=== PATIENT | female | born 1955 | race Caucasian/White ===

== ENCOUNTER 2018-11-11 14:12 | Inpatient (IN) | payer MEDICARE, BC, SELFPAY ==
[2018-11-11 14:15] VITALS: BP 141/55; PULSE 64; RESP 18; TEMP 36.1; O2SAT 98; BMI 32.3
--- NOTE | 2018-11-11 14:30 | EKG12_ITS ---
Test Reason : GENERAL ILLNESS Blood Pressure : / mmHG Vent. Rate : 058 BPM Atrial Rate : 058 BPM P-R Int : 186 ms QRS Dur : 114 ms QT Int : 482 ms P-R-T Axes : -11 -33 020 degrees QTc Int : 473 ms Sinus bradycardia Left axis deviation Incomplete left bundle branch block Abnormal ECG Confirmed by ISAIAS MILLAN, JOSE ([id number]), editor managing newspaper ANNIE SHAHID ([id number]) on 11/12/2018 1:11:50 PM Referred By: JOSE Confirmed By:JOSE ESPARZA MD
--- NOTE | 2018-11-11 14:32 | ED.VISSUMM ---
- ER Visit Summary Date of Service: 11/11/18 Chief Complaint: Weakness History of Present Illness: The patient is a 63 F with history of diabetes and chronic renal failure. Patient states she had 2 sessions of dialysis in August. She is currently visiting from [place] and plans to be here for a few more weeks. When she goes back to [place] she is supposed to follow-up with her cardiac nurse practitioner to arrange nighttime dialysis on a regular basis. Patient states she feels generally weak and is concerned she may need dialysis now. She does report having diarrhea since last evening. She has not noted fever. Physical Examination: Vital signs are unremarkable. Patient sitting upright in bed no acute distress. Heart is regular rate and rhythm. Lung sounds are clear. Abdomen is soft and nontender. Test Results: EKG is sinus bradycardia 58 bpm with no sign of acute ischemia. CBC reveals anemia with a hemoglobin of 7.7. Chemistry studies reveal a sodium of 130 and a bicarb of 15. Her glucose is 115. Her BUN is 88 and creatinine is 6.14. LFTs normal. Emergency Department Course and Treatment: I attempted to check [facility] to see if I could find prior records but there are no records available for comparison. Patient was started on normal saline at 150/h after reviewing her labs. I spoke with Dr. Espinoza from nephrology. She recommended hospitalization overnight for hydration. She said she would consider iron and Epogen before giving a blood transfusion. If her renal function is not improved she may need to undergo dialysis. Treatment Plan: [] Disposition: Admit Impression: 1. Chronic renal failure 2. Hyponatremia 3. Anemia This note was generated with [employer] dictation software. It may contain incorrect words, spelling, and punctuation that were not noted in review of the chart prior to signing ED Disposition - Plan for ED Patient: Referrals: [facility] Doctor,Out of [Primary Care Provider] -
[2018-11-11 14:47] LABS: Absolute Neutrophil Count 5.2 X10^3/uL (2.0-7.7); Basophil# 0.01 X10^3/uL; Basophil% 0.2 % (0-1); Differential Indicated SCAN CRITERIA MET; Eosinophil# 0.02 X10^3/uL; Eosinophils% 0.3 % (0-5); Hematocrit 24.2 % (37-47); Hemoglobin 7.7 g/dl (12.0-15.0); Lymphocyte % 6.9 % (19-41); Mean Corp Hgb Conc 31.8 g/gl (32-36); Mean Corpuscular Hgb 30.2 pg (27.0-32.0); Mean Corpuscular Volume 94.9 fL (81-99); Mean Platelet Vol. 8.1 fl (6.2-12.0); Monocyte# 0.18 X10^3/uL; Monocyte% 3.1 % (0-10); Neutrophil % 89.2 % (47-70); POSITIVE COUNT NO; POSITIVE DIFFERENTIAL YES; POSITIVE MORPHOLOGY NO; Platelet Count 214 K/mm3 (150-450); RBC Distribution Width CV 15.5 % (11.6-14.6); Red Blood Count 2.55 M/mm3 (4.2-5.4); White Blood Count 5.8 K/mm3 (4.4-11.0)
[2018-11-11 15:01] LABS: AST(SGOT) 13 U/L (15-37); Alanine Aminotransfer ALT/SGPT 12 U/L (13-56); Albumin, Serum 3.1 g/dL (3.2-5.0); Alkaline Phosphatase 81 U/L (45-117); Anion Gap 13 (5-15); BUN 88 mg/dL (7-18); BUN/Creat Ratio 14.3 RATIO (10-20); Bilirubin, Direct 0.15 mg/dL (0.00-0.30); Calcium,Total 7.6 mg/dL (8.5-10.1); Chloride 102 mmol/L (98-107); Creatinine, Serum 6.14 mg/dL (0.55-1.02); EST Glomerular Filtration Rate 7 mL/min (>60); Est Glom Filt Rate - Afr Amer 9 mL/min (>60); Estimated Creatinine Clearance 8.55 ml/min; Globulin 4.3 g/dL (2.2-4.2); Glucose 115 mg/dL (74-106); Potassium 5.1 mmol/L (3.5-5.1); Protein, Total 7.4 g/dL (6.4-8.2); Sodium Level 130 mmol/L (136-145)
[2018-11-11 15:37] LABS: Differential Comment SCANNED
[2018-11-11] MEDS: 0.9% Normal Saline 1,000 ML 150 ML IV (15:45)
[2018-11-11 16:09] VITALS: BP 130/56; PULSE 61; RESP 14; O2SAT 95
--- NOTE | 2018-11-11 16:33 | PCM.HP.STD ---
Problem List (1) Debility Status: Acute History of Present Illness Date of Admission: 11/11/18 Chief Complaint: weakness The patient is a 63 year old F who is here visiting from [facility] for the past couple weeks and yesterday started feeling weak and having diffuse paresthesias. This morning had a diarrhea, which she gets intermittently but not any worse than usual. Just felt weak and came to the emergency room. In the emergency room, patient was noted to have a hemoglobin of 7.7 and a creatinine of 6.14. Potassium was 5.1. No baseline lab to available to be compared with. Patient has known that she has bad kidneys but does not know what her normal creatinine is though she was admitted a couple weeks ago in [place] and stated that her creatinine may have been around 6 at that time. Patient sees a blueprinting and photocopy supervisor in [place] that they are looking to plan on getting her set up with nocturnal dialysis which after further elaboration was peritoneal dialysis but patient does not have access port yet. Patient states that she was on Coumadin but stopped it voluntarily couple weeks ago prior to her trip. Patient thinks that she is on it for blood clot in her heart and was on the occasion for about 2 and half months 3 months she was supposed to be on that. She states that they found a blood clot in her heart. She does not know if it was an LV thrombus or not. [] Past Medical History Medical History: Medical History (Last Updated 11/11/18 @ 16:36 by Anthony Georges DO) CKD stage 5 due to type 2 diabetes mellitus E11.22, N18.5 DM2 (diabetes mellitus, type 2) E11.9 SLE (systemic lupus erythematosus) M32.9 HTN (hypertension) I10 Allergies sertraline [From Zoloft] Allergy (Verified 11/11/18 14:14) Other MAKES ME CLIMB THE PEACOCK bacitracin [From Neosporin ([id number])] Adverse Reaction (Verified 11/11/18 14:14) Other PT STATES, SHE GETS DRY SKIN. neomycin [From Neosporin ([id number])] Adverse Reaction (Verified 11/11/18 14:14) Other PT STATES, SHE GETS DRY SKIN. polymyxin B [From Neosporin ([id number])] Adverse Reaction (Verified 11/11/18 14:14) Other PT STATES, SHE GETS DRY SKIN. Psychiatric History: No pertinent psych hx Smoking Status: Heavy Smoker (>10/day) Tobacco Use: Cigarettes Alcohol: None Drugs: None - *Family History Maternal Family History: Family History (Last Updated 11/11/18 @ 16:36 by Anthony Georges DO) Other Rheumatoid arthritis Review of Systems Constitutional: Reports: Anorexia, Chills, Malaise, Weakness. Denies: Fever Eyes: Denies: Blurred vision, Double vision HEENT: Denies: Head Aches, Sinus Congestion, Sinus Drainage Cardiovascular: Denies: Chest Pain, Palpitations Respiratory: Denies: Cough, Shortness of breath at rest, Sputum production Gastrointestinal: Reports: Diarrhea, Nausea. Denies: Vomiting Genitourinary: Denies: Dysuria Musculoskeletal: Denies: Joint Pain, Joint Tenderness Skin: Reports: Wounds - Healing wound on her right upper extremity from infiltrated IV.. Denies: Rash Neurological: Reports: Balance problems. Denies: Blurred vision, Double vision, Change in Speech Psychiatric: Denies: Anxiety, Depression Endocrine: Denies: Change in Body Habitus, Heat/ Cold Intolerance Hematologic/ Lymphatic: Reports: Hx of blood clot. Denies: Easy Bruising, Easy Bleeding Comment: A 10 point review of systems were negative except as mentioned in the history of present illness and the other review of systems. VTE Information - Inpt Only VTE Present on Admission: No VTE Mechan Device Prophylaxis: None VTE Pharm Prophylaxis ordered?: No Reason prophylaxis not ordered:: Procedure Not Indicated Patient Problems: Active and Suspected Problems Debility (Acute) - Physical Exam General: Alert, Cooperative, No apparent distress HEENT: Atraumatic, Normocephalic, - - No scleral icterus Oral: Moist Mucosa, No Gingival or Mucosal Lesions/ Ulcerations Neck: No Nodes, Thyroid Normal Size and Texture Lungs: Clear to auscultation, Normal air movement, No rhonchi, No wheeze, No rales Cardiovascular: Regular rate, Regular Rhythm, Normal S1, Normal S2, No murmurs Abdomen: Bowel Sounds Present, Soft, Non Tender, Non-Distended, No Hepato-splenomegaly, Obese Extremities: No edema, No Calf Tenderness Skin: No rashes, - - Healing wound on her right forearm. Musculoskeletal: No Tenderness to Palpation of Joints or Extremities, No Muscle Wasting Neurological: Muscle tone normal, Coordination normal, - - No clonus Psych/Mental Status: Appropriate, Flat Affect Vital Signs Temp Pulse Resp BP Pulse Ox 36.1 C L 61 14 130/56 H 95 11/11/18 14:15 11/11/18 16:09 11/11/18 16:09 11/11/18 16:09 11/11/18 16:09 Oxygen Delivery Method Room Air Weight: 90.718 kg Body Mass Index (BMI) 32.3 Laboratory Tests Past 24 Hrs 11/11/18 11/11/18 14:40 14:40 WBC 5.8 RBC 2.55 L Hgb 7.7 L Hct 24.2 L MCV 94.9 MCH 30.2 MCHC 31.8 L RDW 15.5 H RDW Differential 54.0 H Plt Count 214 MPV 8.1 Immature Gran % (Auto) 0.300 Neut % (Auto) 89.2 H Lymph % (Auto) 6.9 L [place] % (Auto) 3.1 Eos % (Auto) 0.3 Baso % (Auto) 0.2 Absolute Neuts (auto) 5.2 Absolute Lymphs (auto) 0.40 L Total Counted Not Reportable Differential Comment SCANNED Sodium 130 L Potassium 5.1 Chloride 102 Carbon Dioxide 15.0 L Anion Gap 13 BUN 88 H Creatinine 6.14 H Estim Creat Clear Calc 8.55 Est GFR (MDRD) Af Amer 9 L Est GFR (MDRD) Non-Af 7 L BUN/Creatinine Ratio 14.3 Glucose 115 H Calcium 7.6 L Total Bilirubin 0.40 Direct Bilirubin 0.15 AST 13 L ALT 12 L Alkaline Phosphatase 81 Total Protein 7.4 Albumin 3.1 L Globulin 4.3 H Assessment/Plan All Active Problems Debility (Acute) 1. Debility May be related with just some dehydration on top of her other medical comorbidities We will give her IV fluids. Patient states that she is Andrew feeling better after some IV fluids. Patient stated that she is unsteady so we will have physical and occupational therapy evaluate her 2. Chronic kidney disease stage V I suspect that the patient is either at her baseline or not far off from it Unfortunately do not have any records and the patient does not know what her baseline creatinine is though she suspected around [address] Espinoza, who was contacted by the emergency room for further input Patient sees a Dr. Carl Nunn's in [facility] and they were planning on starting peritoneal dialysis whenever she got back from her prolonged trip. Patient states that he told her that she should not have dialysis through her neck presumably through a dialysis catheter because that would impede her getting peritoneal dialysis. Likely the patient do not know how that is would affect that but we will have our blueprinting and photocopy supervisor evaluate her and provide input. Will request records from [facility] in [place], [place] and from Dr. Carl Nunn. 3. Anemia I suspect anemia of chronic disease Monitor May need Epogen but will defer to nephrology 4. Diabetes mellitus type 2 Weight on her home medications Sliding scale insulin Check an A1c 5. Possible left ventricular thrombosis Patient states that they found a clot in her heart with an echocardiogram couple months ago and that she has been on Coumadin but stopped it before making her trip out to [place] We will start her on heparin drip and Coumadin Check records from the hospital in [place] may need to consider doing an echocardiogram here to verify if she does still indeed have an LV thrombus But if patient was only to be on blood thinners for 3 months of suspected actually may be more of a DVT that she had but patient denies that. Unfortunately, this patient's history is not clearly reliable If patient does indeed have an LV thrombus patient will need to be anticoagulated until her INR is greater than equal to 2. Patient states that she would not stay in the hospital that long. I told the patient that she is certainly declined any medication that she would want and leave potentially AGAINST MEDICAL ADVICE but I did advise her that she may want to confirm with her insurance company to make sure that she would not be financially responsible for the cost of this hospitalization if she were to choose to leave AGAINST MEDICAL ADVICE 6. VTE prophylaxis: Not indicated as patient is currently being anticoagulated. Given the debility patient is being brought under observation status at this point time the patient is found to have a LV thrombus and then her hospitalization will need to change management administrator to an admission status to complete the treatment to get her properly anticoagulated before discharge. This is hindered due to the patient being not fully aware of her medical issues at present. Code Visit OBSV E&M: 80656 Initial observation care L3
[2018-11-11 16:42] VITALS: BMI 33.6
[2018-11-11 16:47] VITALS: BP 141/70; PULSE 62; RESP 18; TEMP 36.4; O2SAT 97
--- NOTE | 2018-11-11 17:12 | NURSING ---
[facility] Pharmacy at [address] [place] [address] Contact number [phone] pt's pharmacy
[2018-11-11 19:19] LABS: Partial Thromboplast Time 48.4 Seconds (24.1-36.2)
[2018-11-11 20:10] LABS: International Normalized Ratio 1.1; Prothrombin Time (Protime)PT. 14.4 SECONDS (11.7-14.9)
[2018-11-11] MEDS: Heparin Injection (Vial) 5,000 UNIT/ML VIAL 7500 UNIT IV (20:28)
[2018-11-11] MEDS: HEPARIN/D5w 25,000 UNITS 25,000 UNITS/250 ML IV.SOLN. 14 UNITS IV (20:28)
[2018-11-11 20:55] LABS: Bedside Glucose 159 mg/dL (70-110)
[2018-11-11 21:39] VITALS: BP 141/50; PULSE 70; RESP 17; TEMP 36.4; O2SAT 93
[2018-11-12 00:13] LABS: Bacteria 0 SEEN /hpf (None Seen); Mucous, Urine 0 SEEN /hpf (<or=2+); Red Blood Cells-Urine 0 SEEN /hpf (0-5); Squamous Epithelial Cells - UA 0 SEEN /hpf (5-10)
--- NOTE | 2018-11-12 00:24 | NURSING ---
pt requesting 02 to sleep with. pt wears capa at home and not here. 02 at 2lnc applied
[2018-11-12 00:49] LABS: Color, Urine Yellow (Yellow); Glucose, Dipstick 50 mg/dl (Normal); Ketone-Dipstick Negative (Negative); Leukocyte Esterase-Dipstick 25 /ul (Negative); Nitrite-Dipstick Negative (Negative); Occult Blood-Urine 25 /ul (Negative); Protein-Dipstick 100 mg/dl (Negative); Urine Bilirubin Dipstick Negative (Negative); Urine Clarity Clear (Clear); Urine Urobilinogen Normal (Normal)
[2018-11-12 01:22] LABS: White Blood Cells 5-10 SEEN /hpf (0-5)
[2018-11-12 02:27] VITALS: BP 127/51; PULSE 69; RESP 18; TEMP 36.2; O2SAT 94
[2018-11-12 03:06] LABS: Absolute Lymphocyte Count 0.48 X10^3/ul (0.83-4.51); Absolute Neutrophil Count 6.5 X10^3/uL (2.0-7.7); Basophil# 0.01 X10^3/uL; Basophil% 0.1 % (0-1); Differential Indicated SCAN CRITERIA MET; Eosinophils% 2.6 % (0-5); Hematocrit 22.7 % (37-47); Hemoglobin 7.1 g/dl (12.0-15.0); Lymphocyte # 0.48 X10^3/ul (4.0); Lymphocyte % 6.3 % (19-41); Mean Corp Hgb Conc 31.3 g/gl (32-36); Mean Corpuscular Hgb 29.8 pg (27.0-32.0); Mean Corpuscular Volume 95.4 fL (81-99); Mean Platelet Vol. 9.1 fl (6.2-12.0); Monocyte# 0.41 X10^3/uL; Monocyte% 5.4 % (0-10); Neutrophil % 85.3 % (47-70); POSITIVE COUNT NO; POSITIVE DIFFERENTIAL YES; POSITIVE MORPHOLOGY NO; Platelet Count 250 K/mm3 (150-450); RBC Distribution Width CV 15.4 % (11.6-14.6); RBC Distribution Width SD 51.1 fl (35.1-43.9); Red Blood Count 2.38 M/mm3 (4.2-5.4); White Blood Count 7.6 K/mm3 (4.4-11.0)
[2018-11-12 03:12] LABS: Partial Thromboplast Time 156.5 Seconds (24.1-36.2)
[2018-11-12 03:13] LABS: International Normalized Ratio 1.3; Prothrombin Time (Protime)PT. 15.9 SECONDS (11.7-14.9)
--- NOTE | 2018-11-12 03:17 | NURSING ---
heparin drip off for ptt 156.5
[2018-11-12 03:18] LABS: Anion Gap 11 (5-15); BUN 89 mg/dL (7-18); BUN/Creat Ratio 14.8 RATIO (10-20); Calcium,Total 7.3 mg/dL (8.5-10.1); Chloride 108 mmol/L (98-107); Creatinine, Serum 6.02 mg/dL (0.55-1.02); EST Glomerular Filtration Rate 8 mL/min (>60); Est Glom Filt Rate - Afr Amer 9 mL/min (>60); Estimated Creatinine Clearance 8.72 ml/min; Glucose 63 mg/dL (74-106); Potassium 5.1 mmol/L (3.5-5.1); Sodium Level 133 mmol/L (136-145); Thyroid Stim Hormone (TSH) 0.16 uIU/mL (0.358-3.74)
[2018-11-12 04:02] LABS: Differential Comment SCANNED; Hypochromasia 2+; Macrocytosis 1+; Microcytosis 1+; Platelet Estimate ADEQUATE (ADEQ)
[2018-11-12] MEDS: Acetaminophen 325 MG Tablet 650 MG PO ×2 (04:33→16:01)
--- NOTE | 2018-11-12 05:14 | NURSING ---
HEPARIN DRIP TURNED BACK ON AT 1100 UNITS/HR
--- NOTE | 2018-11-12 05:55 | NURSING ---
accucheck 35. oj with 2 packets sugar given and crackers w peanut butter. lab notified of stat draw
[2018-11-12 06:01] LABS: Bedside Glucose 35 mg/dL (70-110)
[2018-11-12 06:21] LABS: Bedside Glucose 52 mg/dL (70-110)
--- NOTE | 2018-11-12 06:22 | NURSING ---
blood sugar 52. ice cream and oj given. pt said she feels fine and that her sugar is not low. encourage pt to eat and drink at this time
[2018-11-12 06:24] LABS: Glucose 50 mg/dL (74-106)
[2018-11-12 06:50] LABS: Bedside Glucose 81 mg/dL (70-110)
--- NOTE | 2018-11-12 07:57 | PN_ITS ---
Patient Problems: Active and Suspected Problems (Last Updated 11/11/18 @ 16:36 by Anthony Georges DO) Debility (Acute) Subjective: Patient is a 63-year-old lady with multiple comorbidities including lupus, diabetes mellitus type 2, chronic kidney disease stage V brought seen with progressive generalized weakness. Admitted to the regular nursing floor where patient is being managed for debility. Objective: GENERAL: cooperative HEENT: Atraumatic; moist oral mucosa EYES; Anicteric, Normal Conjunctiva NECK; supple, normal thyroid, RESPIRATORY: Diminished to auscultation bilaterally, CARDIOVASCULAR: Regular S1 S2, GI: soft, non-tender, normoactive bowel sounds, : No Renal angle tenderness; EXTREMITIES: No edema, no clubbing, no cyanosis. MUSCULOSKELETAL: No Joint Tenderness; NEURO: Awake; no lateralizing signs. SKIN: Ecchymosis on upper extremities PSYCH; Normal affect Vitals/I&O's: Vital Signs Temp Pulse Resp BP Pulse Ox 97.1 F L 69 18 127/51 H 94 11/12/18 02:27 11/12/18 02:27 11/12/18 02:27 11/12/18 02:27 11/12/18 02:27 Oxygen Flow Rate (L/min) 2 Oxygen Delivery Method Nasal Cannula Weight: 94.483 kg Body Mass Index (BMI) 33.6 Intake and Output for Last 24 Hours 11/10/18 11/11/18 11/12/18 23:59 23:59 23:59 Intake Total 1264 / 1264 60 / 60 Output Total 600 / 600 250 / 250 Balance 664 / 664 -190 / -190 Laboratory Results 11/11/18 14:40: WBC 5.8, RBC 2.55 L, Hgb 7.7 L, Hct 24.2 L, MCV 94.9, MCH 30.2, MCHC 31.8 L, RDW 15.5 H, RDW Differential 54.0 H, Plt Count 214, MPV 8.1, Immature Gran % (Auto) 0.300, Neut % (Auto) 89.2 H, Lymph % (Auto) 6.9 L, Knott % (Auto) 3.1, Eos % (Auto) 0.3, Baso % (Auto) 0.2, Absolute Neuts (auto) 5.2, Absolute Lymphs (auto) 0.40 L, Total Counted Not Reportable, Differential Comment SCANNED 11/11/18 14:40: Sodium 130 L, Potassium 5.1, Chloride 102, Carbon Dioxide 15.0 L , Anion Gap 13, BUN 88 H, Creatinine 6.14 H, Estim Creat Clear Calc 8.55, Est GFR (MDRD) Af Amer 9 L, Est GFR (MDRD) Non-Af 7 L, BUN/Creatinine Ratio 14.3, Glucose 115 H, Calcium 7.6 L, Total Bilirubin 0.40, Direct Bilirubin 0.15, AST 13 L, ALT 12 L, Alkaline Phosphatase 81, Total Protein 7.4, Albumin 3.1 L, Globulin 4.3 H 11/11/18 18:30: APTT 48.4 H 11/11/18 18:30: PT 14.4, INR 1.1, APTT Cancelled 11/11/18 20:35: POC Glucose 159 H 11/11/18 23:55: Urine Color Yellow, Urine Clarity Clear, Urine pH 6.0, Ur Specific [place] 1.010, Urine Protein 100 H, Urine Glucose (UA) 50 H, Urine Ketones Negative, Urine Occult Blood 25 H, Urine Nitrite Negative, Urine Bilirubin Negative, Urine Urobilinogen Normal, Ur Leukocyte Esterase 25 H, Urine RBC 0 SEEN, Urine WBC 5-10 SEEN, Ur Squamous Epith Cells 0 SEEN, Urine Bacteria 0 SEEN, Urine Mucus 0 SEEN 11/12/18 02:35: WBC 7.6, RBC 2.38 L, Hgb 7.1 L, Hct 22.7 L, MCV 95.4, MCH 29.8, MCHC 31.3 L, RDW 15.4 H, RDW Differential 51.1 H, Plt Count 250, MPV 9.1, Immature Gran % (Auto) 0.300, Neut % (Auto) 85.3 H, Lymph % (Auto) 6.3 L, Knot[place] % (Auto) 5.4, Eos % (Auto) 2.6, Baso % (Auto) 0.1, Absolute Neuts (auto) 6.5, Absolute Lymphs (auto) 0.48 L, Total Counted Not Reportable, Differential Comment SCANNED, Platelet Estimate ADEQUATE, Hypochromasia 2+, Microcytosis 1+, Macrocytosis 1+ 11/12/18 02:35: PT 15.9 H, INR 1.3 07/01/19 02:35: Sodium 133 L, Potassium 5.1, Chloride 108 H, Carbon Dioxide 14.0 L, Anion Gap 11, BUN 89 H, Creatinine 6.02 H, Estim Creat Clear Calc 8.72, Est GFR (MDRD) Af Amer 9 L, Est GFR (MDRD) Non-Af 8 L, BUN/Creatinine Ratio 14.8, Glucose 63 L, Calcium 7.3 L, TSH 0.16 L 11/12/18 02:35: Hemoglobin A1c Pending 11/12/18 02:35: APTT 156.5 H* 11/12/18 05:48: POC Glucose 35 L* 11/12/18 06:08: Glucose 50 L 11/12/18 06:13: POC Glucose 52 L 11/12/18 06:46: POC Glucose 81 Current Medications Acetaminophen (Tylenol) 650 mg PO Q6H PRN PRN PRN Reason: Mild Pain (1-3)/Temp > 100.7 F Last Admin: 11/12/18 04:33 Dose: 650 mg Documented by: Dextrose (D50w Syringe) 0 gm IV X1 PRN; Protocol PRN Reason: Hypoglycemia Glucagon () 1 mg IM .X1 PRN PRN Reason: Hypoglycemia Heparin Sodium (Porcine) (Heparin Na) 0 unit IV UD PRN; Protocol Heparin Sodium/Dextrose () 25,000 units in 250 mls @ 14 mls/hr IV .[id number] [facility]; Protocol Last Admin: 11/11/18 20:28 Dose: 14 mls/hr Documented by: Insulin Human Lispro (Humalog Kwikpen (Bkc)) 0 unit SC TIDAC [facility]; Protocol Last Admin: 11/12/18 05:55 Dose: Not Given Documented by: Ondansetron HCl (Zofran) 4 mg IV Q8H PRN PRN PRN Reason: NAUSEA/VOMITING Sodium Chloride () 10 - 40 ml IV UD PRN PRN Reason: SALINE FLUSH Medical Necessity - Tobacco Use Smoking Status: Heavy Smoker (>10/day) Tobacco Use: Cigarettes Assessment/Plan All Active Problems (Last Updated 11/11/18 @ 16:36 by Anthony Georges DO) Debility (Acute) Patient is a 63-year-old lady admitted with progressive generalized weakness 1. Physical debility secondary to patient comorbidities including chronic kidney disease stage V, diabetes with hypoglycemia as well as anemia admitted to regular nursing floor where patient is currently being managed 2. Chronic kidney disease stage V Baseline creatinine unknown old records requested from patient's hospital includes. She however had significant azotemia. Consultation was placed to nephrology on admission 2. Diabetes mellitus type 2 patient is on insulin which was held in view of patient's significant hypoglycemia 4. History of cardiac thrombus exact location unknown patient was apparently on systemic anticoagulation with Coumadin which she forgot was traveling from [place] to [place] patient was started on heparin and Coumadin with daily monitoring of INR 5. Anemia secondary setting of chronic disorder 6. History of lupus 7. Tobacco dependence counseled on cessation, offered nicotine patch for tobacco cravings 8. DVT prophylaxis patient is on systemic anticoagulation Code Visit OBSV E&M: 63168 Subsequent observation care L3
[2018-11-12 08:12] LABS: Hemoglobin A1c < 3.5 % (4.2-6.3)
[2018-11-12 09:50] LABS: Partial Thromboplast Time 54.4 Seconds (24.1-36.2)
[2018-11-12] MEDS: Heparin Injection (Vial) 5,000 UNIT/ML VIAL IV (10:43)
[2018-11-12 10:45] VITALS: BP 124/49; PULSE 65; RESP 18; TEMP 36.9; O2SAT 94
--- NOTE | 2018-11-12 11:50 | PCM.CONS.R ---
Consultation - Renal 11/12/18 PCP/ Referring MD: Requesting physician: [] Primary care physician: Out of Town Doctor Reason for Consultation:: CKD Stage 5 - History of Present Illness History of Present Illness: The patient is a 63 year old F with CKD stage V due to diabetes recently visiting from [place] on November 02 for her father's passing. She was hospitalized a week prior to traveling to [place] for kidney stones and UTI. She was given Flomax and couple of antibiotics that she has not completed. She also takes Coumadin for possible blood clot in her heart. She was dialyzed couple of times back in August when she was in for confusion and UTI. She has not required any further dialysis treatments since then. Her last office visit with her primary edge glue machine tender in [place] was October 29. There were plans to start her on home dialysis when she returns back home. Currently she has no dialysis access established. She was planning on staying for another couple of weeks in the area to help her [id number]. Current creatinine is at 6 with GFR of 7-9 cc/min. She does not remember what her baseline creatinine level is but she has been told that she had a GFR of 7 cc/min in the past. She also has anemia on Procrit injections monthly along with IV iron therapy as needed managed by her edge glue machine tender back home. She states she is not compliant as she should with her iron supplements. She was seen in the emergency room for generalized weakness, fatigue, and increased somnolence. She currently is on heparin drip since her INR was subtherapeutic from malcompliance. She left her anticoagulants at home. She is completing her antibiotic regimen for her UTI as an outpatient prescribed to her in October. She was prescribed Keflex 3 times a day. Denies any shortness of breath or chest pain. She does have mild lower extremity edema on diuretic therapy as needed. She denied any NSAID use. She is drinking orange juice for low sugar. Potassium level was 5.1 on admission. - Allergies Allergies: Allergies sertraline [From Zoloft] Allergy (Verified 11/11/18 14:14) Other MAKES ME CLIMB THE PEACOCK bacitracin [From Neosporin ([id number])] Adverse Reaction (Verified 11/11/18 14:14) Other PT STATES, SHE GETS DRY SKIN. neomycin [From Neosporin ([id number])] Adverse Reaction (Verified 11/11/18 14:14) Other PT STATES, SHE GETS DRY SKIN. polymyxin B [From Neosporin ([id number])] Adverse Reaction (Verified 11/11/18 14:14) Other PT STATES, SHE GETS DRY SKIN. - Current Medications Current Medications: Current Medications Acetaminophen (Tylenol) 650 mg PO Q6H PRN PRN PRN Reason: Mild Pain (1-3)/Temp > 100.7 F Last Admin: 11/12/18 04:33 Dose: 650 mg Documented by: Dextrose (D50w Syringe) 0 gm IV X1 PRN; Protocol PRN Reason: Hypoglycemia Glucagon () 1 mg IM .X1 PRN PRN Reason: Hypoglycemia Heparin Sodium (Porcine) (Heparin Na) 0 unit IV UD PRN; Protocol Last Admin: 11/12/18 10:43 Dose: 1,000 unit Documented by: Heparin Sodium/Dextrose () 25,000 units in 250 mls @ 14 mls/hr IV .[id number] COUNT INCLUDES [facility]; Protocol Last Admin: 11/11/18 20:28 Dose: 14 mls/hr Documented by: Insulin Human Lispro (Humalog Kwikpen (Bkc)) 0 unit SC TIDAC COUNT INCLUDES [facility]; Protocol Last Admin: 11/12/18 05:55 Dose: Not Given Documented by: Ondansetron HCl (Zofran) 4 mg IV Q8H PRN PRN PRN Reason: NAUSEA/VOMITING Sodium Chloride () 10 - 40 ml IV UD PRN PRN Reason: SALINE FLUSH - Past Surgical History Surgical History: colectomy, hysterectomy - Social History Smoking Status: Heavy Smoker (>10/day) Alcohol: None Drugs: None - Family History Maternal Family History: Family History (Last Updated 11/11/18 @ 16:36 by Anthony Georges DO) Other Rheumatoid arthritis Paternal Family History: Family History (Last Updated 11/11/18 @ 16:36 by Anthony Georges DO) Other Rheumatoid arthritis History Items: Cancer Review of Systems Constitutional: Reports: Weakness. Denies: Anorexia, Chills, Fever Cardiovascular: Reports: Edema. Denies: Chest Pain, Syncope Respiratory: Denies: Cough, Shortness of Breath Gastrointestinal: Denies: Abdominal Pain, Constipation, Diarrhea, Nausea, Vomiting Skin: Reports: Rash, Wounds Neurological: Denies: Tremor, Seizures Hematologic/ Lymphatic: Reports: Anemia. Denies: Hx of blood clot Patient Problems: Active and Suspected Problems (Last Updated 11/11/18 @ 16:36 by Anthony Georges DO) Debility (Acute) - Physical Exam General: Alert, Oriented x3, Cooperative, No apparent distress HEENT: PERRLA, EOMI Lungs: Clear to auscultation Cardiovascular: Regular rate, Murmur, No rub noted Abdomen: Bowel Sounds Present, Soft, Non Tender, Non-Distended Extremities: Edema - mild Skin: Skin Tear - forearms, - - skin discoloration Musculoskeletal: No Muscle Wasting Neurological: Cranial nerves II-XII grossly intact, - - no tremor Psych/Mental Status: Normal Affect, Appropriate, Alert and oriented to time, place, person, mood and affect Vital Signs Temp Pulse Resp BP Pulse Ox 98.4 F 65 18 124/49 H 94 11/12/18 10:45 11/12/18 10:45 11/12/18 10:45 11/12/18 10:45 11/12/18 10:45 Oxygen Flow Rate (L/min) 2 Oxygen Delivery Method Room Air Weight: 94.4 kg Body Mass Index (BMI) 33.6 Intake and Output for Last 24 Hours 11/10/18 11/11/18 11/12/18 23:59 23:59 23:59 Intake Total 1264 / 1264 60 / 60 Output Total 600 / 600 250 / 250 Balance 664 / 664 -190 / -190 Laboratory Tests Past 24 Hrs 11/11/18 11/11/18 11/11/18 14:40 14:40 18:30 WBC 5.8 RBC 2.55 L Hgb 7.7 L Hct 24.2 L MCV 94.9 MCH 30.2 MCHC 31.8 L RDW 15.5 H RDW Differential 54.0 H Plt Count 214 MPV 8.1 Immature Gran % (Auto) 0.300 Neut % (Auto) 89.2 H Lymph % (Auto) 6.9 L Winn % (Auto) 3.1 Eos % (Auto) 0.3 Baso % (Auto) 0.2 Absolute Neuts (auto) 5.2 Absolute Lymphs (auto) 0.40 L Total Counted Not Reportable Differential Comment SCANNED Platelet Estimate Hypochromasia Microcytosis Macrocytosis PT INR APTT 48.4 H Sodium 130 L Potassium 5.1 Chloride 102 Carbon Dioxide 15.0 L Anion Gap 13 BUN 88 H Creatinine 6.14 H Estim Creat Clear Calc 8.55 Est GFR (MDRD) Af Amer 9 L Est GFR (MDRD) Non-Af 7 L BUN/Creatinine Ratio 14.3 Glucose 115 H Hemoglobin A1c Calcium 7.6 L Iron Ferritin Total Bilirubin 0.40 Direct Bilirubin 0.15 AST 13 L ALT 12 L Alkaline Phosphatase 81 Total Protein 7.4 Albumin 3.1 L Globulin 4.3 H TSH Urine Color Urine Clarity Urine pH Ur Specific [place] Urine Protein Urine Glucose (UA) Urine Ketones Urine Occult Blood Urine Nitrite Urine Bilirubin Urine Urobilinogen Ur Leukocyte Esterase Urine RBC Urine WBC Ur Squamous Epith Cells Urine Bacteria Urine Mucus 11/11/18 11/11/18 11/12/18 18:30 23:55 02:35 WBC 7.6 RBC 2.38 L Hgb 7.1 L Hct 22.7 L MCV 95.4 MCH 29.8 MCHC 31.3 L RDW 15.4 H RDW Differential 51.1 H Plt Count 250 MPV 9.1 Immature Gran % (Auto) 0.300 Neut % (Auto) 85.3 H Lymph % (Auto) 6.3 L Winn % (Auto) 5.4 Eos % (Auto) 2.6 Baso % (Auto) 0.1 Absolute Neuts (auto) 6.5 Absolute Lymphs (auto) 0.48 L Total Counted Not Reportable Differential Comment SCANNED Platelet Estimate ADEQUATE Hypochromasia 2+ Microcytosis 1+ Macrocytosis 1+ PT 14.4 INR 1.1 APTT Cancelled Sodium Potassium Chloride Carbon Dioxide Anion Gap BUN Creatinine Estim Creat Clear Calc Est GFR (MDRD) Af Amer Est GFR (MDRD) Non-Af BUN/Creatinine Ratio Glucose Hemoglobin A1c Calcium Iron Ferritin Total Bilirubin Direct Bilirubin AST ALT Alkaline Phosphatase Total Protein Albumin Globulin TSH Urine Color Yellow Urine Clarity Clear Urine pH 6.0 Ur Specific [place] 1.010 Urine Protein 100 H Urine Glucose (UA) 50 H Urine Ketones Negative Urine Occult Blood 25 H Urine Nitrite Negative Urine Bilirubin Negative Urine Urobilinogen Normal Ur Leukocyte Esterase 25 H Urine RBC 0 SEEN Urine WBC 5-10 SEEN Ur Squamous Epith Cells 0 SEEN Urine Bacteria 0 SEEN Urine Mucus 0 SEEN 11/12/18 11/12/18 11/12/18 02:35 02:35 02:35 WBC RBC Hgb Hct MCV MCH MCHC RDW RDW Differential Plt Count MPV Immature Gran % (Auto) Neut % (Auto) Lymph % (Auto) Winn % (Auto) Eos % (Auto) Baso % (Auto) Absolute Neuts (auto) Absolute Lymphs (auto) Total Counted Differential Comment Platelet Estimate Hypochromasia Microcytosis Macrocytosis PT 15.9 H INR 1.3 APTT Sodium 133 L Potassium 5.1 Chloride 108 H Carbon Dioxide 14.0 L Anion Gap 11 BUN 89 H Creatinine 6.02 H Estim Creat Clear Calc 8.72 Est GFR (MDRD) Af Amer 9 L Est GFR (MDRD) Non-Af 8 L BUN/Creatinine Ratio 14.8 Glucose 63 L Hemoglobin A1c < 3.5 L Calcium 7.3 L Iron Ferritin Total Bilirubin Direct Bilirubin AST ALT Alkaline Phosphatase Total Protein Albumin Globulin TSH 0.16 L Urine Color Urine Clarity Urine pH Ur Specific [place] Urine Protein Urine Glucose (UA) Urine Ketones Urine Occult Blood Urine Nitrite Urine Bilirubin Urine Urobilinogen Ur Leukocyte Esterase Urine RBC Urine WBC Ur Squamous Epith Cells Urine Bacteria Urine Mucus 11/12/18 11/12/18 11/12/18 02:35 06:08 06:08 WBC RBC Hgb Hct MCV MCH MCHC RDW RDW Differential Plt Count MPV Immature Gran % (Auto) Neut % (Auto) Lymph % (Auto) Winn % (Auto) Eos % (Auto) Baso % (Auto) Absolute Neuts (auto) Absolute Lymphs (auto) Total Counted Differential Comment Platelet Estimate Hypochromasia Microcytosis Macrocytosis PT INR APTT 156.5 H* Sodium Potassium Chloride Carbon Dioxide Anion Gap BUN Creatinine Estim Creat Clear Calc Est GFR (MDRD) Af Amer Est GFR (MDRD) Non-Af BUN/Creatinine Ratio Glucose 50 L Hemoglobin A1c Calcium Iron Pending Ferritin Pending Total Bilirubin Direct Bilirubin AST ALT Alkaline Phosphatase Total Protein Albumin Globulin TSH Urine Color Urine Clarity Urine pH Ur Specific [place] Urine Protein Urine Glucose (UA) Urine Ketones Urine Occult Blood Urine Nitrite Urine Bilirubin Urine Urobilinogen Ur Leukocyte Esterase Urine RBC Urine WBC Ur Squamous Epith Cells Urine Bacteria Urine Mucus 11/12/18 11/12/18 06:08 09:22 WBC RBC Hgb Hct MCV MCH MCHC RDW RDW Differential Plt Count MPV Immature Gran % (Auto) Neut % (Auto) Lymph % (Auto) Winn % (Auto) Eos % (Auto) Baso % (Auto) Absolute Neuts (auto) Absolute Lymphs (auto) Total Counted Differential Comment Platelet Estimate Hypochromasia Microcytosis Macrocytosis PT INR APTT 54.4 H Sodium Potassium Chloride Carbon Dioxide Anion Gap BUN Creatinine Estim Creat Clear Calc Est GFR (MDRD) Af Amer Est GFR (MDRD) Non-Af BUN/Creatinine Ratio Glucose Hemoglobin A1c Calcium Iron Cancelled Ferritin Total Bilirubin Direct Bilirubin AST ALT Alkaline Phosphatase Total Protein Albumin Globulin TSH Urine Color Urine Clarity Urine pH Ur Specific [place] Urine Protein Urine Glucose (UA) Urine Ketones Urine Occult Blood Urine Nitrite Urine Bilirubin Urine Urobilinogen Ur Leukocyte Esterase Urine RBC Urine WBC Ur Squamous Epith Cells Urine Bacteria Urine Mucus POC Glucose 11/12/18 11/12/18 11/12/18 06:46 06:13 05:48 POC Glucose 81 52 L 35 L* 11/11/18 20:35 POC Glucose 159 H Assessment/Plan All Active Problems (Last Updated 11/11/18 @ 16:36 by Anthony Georges DO) Debility (Acute) 1.CKD stage 5 due to diabetes. Creatinine at 6 with GFR of 7 to 9 cc/min. She does not have a dialysis access established. She currently has no uremic symptoms therefore no urgent need to initiate dialysis. Furthermore. Patient states that she will not start dialysis until she returns back home. I encouraged her to follow-up with her primary edge glue machine tender when she returns back home. Check intact PTH and vitamin D level. 2. Iron deficiency anemia. She was due for Procrit injection last week and has received IV iron in the past. Noncompliant with oral iron therapy at home. We will give a dose of IV iron therapy along with EPO 10,000 units today. 3. Diabetes mellitus type 2 managed by primary care doctor 4. Hypertension with stable blood pressures 5. Check vitamin D level 6. Weakness, fatigue suspect due to CKD stage V, anemia. 7. Recent UTI and kidney stones. Patient to complete her course of Keflex treatment with prescribed by her doctor back in [place]. Office information provided to the patient
[2018-11-12 11:54] LABS: Ferritin 504 ng/mL (8-252); Iron 56 ug/dL (50-170)
[2018-11-12 12:10] LABS: Bedside Glucose 89 mg/dL (70-110)
[2018-11-12] MEDS: Epoetin Alfa epbx 10,000 UNITS/ML 10000 UNIT SC (12:38)
[2018-11-12 13:05] LABS: Phosphorus 11.3 mg/dL (2.5-4.9)
[2018-11-12 14:58] VITALS: BP 143/49; PULSE 66; RESP 18; TEMP 36.9; O2SAT 97
[2018-11-12] MEDS: 0.9% NaCl Peripheral Flush Adult/Peds IV (14:58)
[2018-11-12 16:16] LABS: Bedside Glucose 118 mg/dL (70-110)
[2018-11-12 17:37] LABS: Partial Thromboplast Time 102.3 Seconds (24.1-36.2)
[2018-11-12 19:17] LABS: International Normalized Ratio 1.2
[2018-11-12] MEDS: HEPARIN/D5w 25,000 UNITS 25,000 UNITS/250 ML IV.SOLN. 14 UNITS IV (19:55)
[2018-11-12 20:55] VITALS: BP 127/51; PULSE 64; RESP 18; TEMP 36.9; O2SAT 93
[2018-11-12 21:06] LABS: Bedside Glucose 186 mg/dL (70-110)
[2018-11-12] MEDS: Gabapentin 300 MG Capsule PO (23:19)
[2018-11-12] MEDS: Pramipexole Di-HCl 0.5 MG Tablet PO (23:19)
[2018-11-12] MEDS: lamoTRIgine 100 MG Tablet 200 MG PO (23:19)
[2018-11-12 23:20] LABS: Partial Thromboplast Time 67.2 Seconds (24.1-36.2)
[2018-11-12] MEDS: amLODIPine 5 MG Tablet PO (23:20)
[2018-11-12] MEDS: Escitalopram Oxalate 20 MG Tablet PO (23:20)
[2018-11-13] VITALS (13 sets, daily range): BP systolic 115–154; BP diastolic 37–74; PULSE 64–83; RESP 16–18; TEMP 36.4–37.2; O2SAT 92–99
[2018-11-13 03:56] LABS: Bedside Glucose 101 mg/dL (70-110)
[2018-11-13 05:45] LABS: Absolute Lymphocyte Count 0.68 X10^3/ul (0.83-4.51); Basophil# 0.01 X10^3/uL; Basophil% 0.2 % (0-1); Eosinophil# 0.28 X10^3/uL; Eosinophils% 4.3 % (0-5); Hemoglobin 6.4 g/dl (12.0-15.0); Lymphocyte # 0.68 X10^3/ul (4.0); Lymphocyte % 10.4 % (19-41); Mean Corp Hgb Conc 30.5 g/gl (32-36); Mean Corpuscular Hgb 29.4 pg (27.0-32.0); Mean Corpuscular Volume 96.3 fL (81-99); Mean Platelet Vol. 8.9 fl (6.2-12.0); Monocyte# 0.54 X10^3/uL; Monocyte% 8.3 % (0-10); Neutrophil % 76.5 % (47-70); Platelet Count 245 K/mm3 (150-450); RBC Distribution Width CV 15.3 % (11.6-14.6); RBC Distribution Width SD 50.5 fl (35.1-43.9); Red Blood Count 2.18 M/mm3 (4.2-5.4); White Blood Count 6.5 K/mm3 (4.4-11.0)
[2018-11-13 05:49] LABS: POSITIVE COUNT NO; POSITIVE DIFFERENTIAL NO; POSITIVE MORPHOLOGY NO
[2018-11-13 05:56] LABS: Partial Thromboplast Time 69.2 Seconds (24.1-36.2)
[2018-11-13 06:04] LABS: Anion Gap 15 (5-15); BUN 91 mg/dL (7-18); BUN/Creat Ratio 15.6 RATIO (10-20); Calcium,Total 6.9 mg/dL (8.5-10.1); Chloride 105 mmol/L (98-107); Creatinine, Serum 5.83 mg/dL (0.55-1.02); EST Glomerular Filtration Rate 8 mL/min (>60); Est Glom Filt Rate - Afr Amer 9 mL/min (>60); Estimated Creatinine Clearance 9.01 ml/min; Glucose 88 mg/dL (74-106); Magnesium 2.3 mg/dL (1.6-2.6); Potassium 4.8 mmol/L (3.5-5.1); Sodium Level 134 mmol/L (136-145)
[2018-11-13 06:56] LABS: Bedside Glucose 78 mg/dL (70-110)
[2018-11-13 07:36] LABS: International Normalized Ratio 1.2; Prothrombin Time (Protime)PT. 15.4 SECONDS (11.7-14.9)
[2018-11-13 08:38] LABS: PTHIN 1362.4 pg/mL (18.4-80.1); Vitamin D,25 Hydroxy 10.7 ng/mL (29.95-100.01)
--- NOTE | 2018-11-13 08:55 | PCM.PN.BLA ---
Progress Note labs reviewed, vitals stable PE: AOx3, weak HRRR +murmur LCTAB Extrem no edema A/P: Hypocalcemic with hyperphosphatemia, hyperparathyroidism. Needs binders, VDRA. Start phoslo and calcitriol Metabolic acidosis due to renal failure. Suggest bicarb tablets. Anemia with low hgb. Consider prbc. Pt essentially at ESRD but will need to get set up back home. FU with primary dry cleaner presser in [place] for continued KARSETN therapy. DW hospitalist
--- NOTE | 2018-11-13 09:22 | PN_ITS ---
Patient Problems: Active and Suspected Problems (Last Updated 11/11/18 @ 16:36 by Anthony Georges DO) Debility (Acute) Subjective: Patient seen eager to be discharged home. Did review her lab work with her hemoglobin dropped to 6.5. INR remains at 1.2. Patient agreed to be transfusing 1 unit PRBC with post transfusion H&H ordered Objective: GENERAL: cooperative HEENT: Atraumatic; moist oral mucosa EYES; Anicteric, Normal Conjunctiva NECK; supple, normal thyroid, RESPIRATORY: Diminished to auscultation bilaterally, CARDIOVASCULAR: Regular S1 S2, GI: soft, non-tender, normoactive bowel sounds, : No Renal angle tenderness; EXTREMITIES: No edema, no clubbing, no cyanosis. MUSCULOSKELETAL: No Joint Tenderness; NEURO: Awake; no lateralizing signs. SKIN: Ecchymosis on upper extremities PSYCH; Normal affect Vitals/I&O's: Vital Signs Temp Pulse Resp BP Pulse Ox 97.6 F L 72 16 128/37 H 95 11/13/18 09:03 11/13/18 09:03 11/13/18 09:03 11/13/18 09:03 11/13/18 09:03 Oxygen Flow Rate (L/min) 2 Oxygen Delivery Method Room Air Weight: 94.4 kg Body Mass Index (BMI) 33.6 Intake and Output for Last 24 Hours 11/11/18 11/12/18 11/13/18 23:59 23:59 23:59 Intake Total 1264 / 1264 1315 / 1315 673 / 673 Output Total 600 / 600 650 / 650 Balance 664 / 664 665 / 665 673 / 673 Laboratory Results 11/12/18 06:08: Iron 56, Ferritin 504 H 11/12/18 06:08: Iron Cancelled 11/12/18 06:08: Phosphorus 11.3 H* 11/12/18 09:22: APTT 54.4 H 11/12/18 12:03: POC Glucose 89 11/12/18 16:03: POC Glucose 118 H 11/12/18 16:45: APTT 102.3 H* 11/12/18 16:45: PT 15.0 H, INR 1.2 11/12/18 21:03: POC Glucose 186 H 11/12/18 23:05: APTT 67.2 H 11/13/18 03:02: POC Glucose 101 11/13/18 05:05: WBC 6.5, RBC 2.18 L, Hgb 6.4 L, Hct 21.0 L, MCV 96.3, MCH 29.4, MCHC 30.5 L, RDW 15.3 H, RDW Differential 50.5 H, Plt Count 245, MPV 8.9, Immature Gran % (Auto) 0.300, Neut % (Auto) 76.5 H, Lymph % (Auto) 10.4 L, [place] % (Auto) 8.3, Eos % (Auto) 4.3, Baso % (Auto) 0.2, Absolute Neuts (auto) 5.0, Absolute Lymphs (auto) 0.68 L, Total Counted Not Reportable 11/13/18 05:05: Sodium 134 L, Potassium 4.8, Chloride 105, Carbon Dioxide 14.0 L , Anion Gap 15, BUN 91 H, Creatinine 5.83 H, Estim Creat Clear Calc 9.01, Est GFR (MDRD) Af Amer 9 L, Est GFR (MDRD) Non-Af 8 L, BUN/Creatinine Ratio 15.6, Glucose 88, Calcium 6.9 L, Magnesium 2.3 11/13/18 05:05: Vitamin D 25-Hydroxy 10.7 L 11/13/18 05:05: PTH Intact 1362.4 H 11/13/18 05:05: APTT 69.2 H 11/13/18 05:05: PT 15.4 H, INR 1.2 11/13/18 06:47: POC Glucose 78 Current Medications Acetaminophen (Tylenol) 650 mg PO Q6H PRN PRN PRN Reason: Mild Pain (1-3)/Temp > 100.7 F Last Admin: 11/12/18 16:01 Dose: 650 mg Documented by: Albuterol Sulfate (Ventolin Aerosols) 2.5 mg INHALATION Q4H PRN PRN PRN Reason: SOB &/OR WHEEZING Amlodipine Besylate (Norvasc) 5 mg PO DAILY [facility] Last Admin: 11/12/18 23:20 Dose: 5 mg Documented by: Calcitriol (Rocaltrol) 1 mcg PO DAILY [facility] Calcium Acetate (Phoslo Gel Cap) 2,001 mg PO TIDCM [facility] Dextrose (D50w Syringe) 0 gm IV X1 PRN; Protocol PRN Reason: Hypoglycemia Ergocalciferol (Vitamin D) 50,000 unit PO Tu@1000 [facility] Escitalopram Oxalate (Lexapro) 20 mg PO DAILY [facility] Last Admin: 11/12/18 23:20 Dose: 20 mg Documented by: Ferrous Sulf[facility] ([facility]ous Sulfate) [facility] Gabapentin (Neurontin) 300 mg PO QHS [facility] Last Admin: 11/12/18 23:19 Dose: 300 mg Documented by: Glucagon () 1 mg IM .X1 PRN PRN Reason: Hypoglycemia Heparin Sodium (Porcine) (Heparin Na) 0 unit IV UD PRN; Protocol Last Admin: 11/12/18 10:43 Dose: 1,000 unit Documented by: Hydroxychloroquine Sulfate (Plaquenil) 200 mg PO QHS [facility] Hydroxyzine Pamoate (Vistaril Pamoate Capsule) 25 mg PO Q8H PRN PRN PRN Reason: ANXIETY Heparin Sodium/Dextrose () 25,000 units in 250 mls @ 14 mls/hr IV .[id number] [facility]; Protocol Last Admin: 11/12/18 19:55 Dose: 14 mls/hr Documented by: Insulin Glargine (Lantus (Bkc)) 25 units SC QHS [facility] Last Admin: 11/12/18 23:20 Dose: 25 u Documented by: Insulin Human Lispro (Humalog Kwikpen (Bkc)) 0 unit SC TIDAC [facility]; Protocol Last Admin: 11/13/18 06:49 Dose: Not Given Documented by: [facility] Last Admin: 11/12/18 23:19 Dose: 200 mg Documented by: Ondansetron HCl (Zofran) 4 mg IV Q8H PRN PRN PRN Reason: NAUSEA/VOMITING Pramipexole [facility]hydrochlor[facility] ([facility]x) [facility] Last Admin: 11/12/18 23:19 Dose: 0.5 mg Documented by: Sodium Bicarbonate (Sodium Bicarbonate) 650 mg PO 4X/DAY [facility] Sodium Chloride () 10 - 40 ml IV UD PRN PRN Reason: SALINE FLUSH Last Admin: 11/12/18 14:58 Dose: 10 ml Documented by: Warfarin Sodium (Coumadin (Pbkc)) 6 mg PO DAILY@1700 [facility] Last Admin: 11/12/18 18:56 Dose: 6 mg Documented by: Medical Necessity - Tobacco Use Smoking Status: Heavy Smoker (>10/day) Tobacco Use: Cigarettes Assessment/Plan All Active Problems (Last Updated 11/11/18 @ 16:36 by Anthony Georges DO) Debility (Acute) Patient is a 63-year-old lady admitted with progressive generalized weakness 1. Severe anemia. (Secondary to anemia of chronic disorder as well as chronic kidney disease) patient hemoglobin did drop from 7.7 on admission to 6.4. With patient being symptomatic and order was given for patient to be transferred with a widely PRBC with plan for posttransfusion H&H ordered. 2. Physical debility secondary to patient comorbidities including chronic kidney disease stage V, diabetes with hypoglycemia as well as anemia admitted to regular nursing floor where patient is currently being managed 3. Chronic kidney disease stage V Baseline creatinine unknown old records requested from patient's hospital includes. She however had significant azotemia. Consultation was placed to nephrology on admission 4. Diabetes mellitus type 2 patient is on insulin which was held in view of patient's significant hypoglycemia 5. History of cardiac thrombus exact location unknown patient was apparently on systemic anticoagulation with Coumadin which she forgot was traveling from [place] to [place] patient was started on heparin and Coumadin with daily monitoring of INR ~INR 1.2 on 11/13/2018 6. History of lupus 7. Tobacco dependence counseled on cessation, offered nicotine patch for tobacco cravings 8. DVT prophylaxis patient is on systemic anticoagulation Code Visit Inpatient E&M: [id number] [facility] L3
[2018-11-13] MEDS: Ferrous Sulfate 325 MG Tablet PO (09:30)
[2018-11-13] MEDS: Sodium Bicarbonate 650 MG Tablet PO ×3 (09:37→21:23)
[2018-11-13] MEDS: Calcium Acetate 667 MG Capsule 2001 MG PO ×2 (11:17→16:20)
[2018-11-13 11:51] LABS: Bedside Glucose 91 mg/dL (70-110)
[2018-11-13] MEDS: Loperamide 2 MG Capsule 4 MG PO (14:25)
[2018-11-13] MEDS: 0.9% NaCl Peripheral Flush Adult/Peds IV ×2 (16:18→21:22)
[2018-11-13 16:20] LABS: Bedside Glucose 117 mg/dL (70-110)
[2018-11-13 17:28] LABS: Hematocrit 22.2 % (37-47); Hemoglobin 7.1 g/dl (12.0-15.0)
[2018-11-13] MEDS: amLODIPine 5 MG Tablet PO (21:22)
[2018-11-13] MEDS: Calcitriol 0.25 MCG Capsule 1 MCG PO (21:22)
[2018-11-13] MEDS: lamoTRIgine 100 MG Tablet 200 MG PO (21:22)
[2018-11-13] MEDS: HEPARIN/D5w 25,000 UNITS 25,000 UNITS/250 ML IV.SOLN. 10 UNITS IV (21:22)
[2018-11-13] MEDS: Escitalopram Oxalate 20 MG Tablet PO (21:22)
[2018-11-13] MEDS: Gabapentin 300 MG Capsule PO (21:22)
[2018-11-13] MEDS: Hydroxychloroquine 200 MG Tablet PO (21:22)
[2018-11-13] MEDS: Pramipexole Di-HCl 0.5 MG Tablet PO (21:22)
[2018-11-13 21:46] LABS: Bedside Glucose 128 mg/dL (70-110)
[2018-11-14] MEDS: Ondansetron 4 MG/2 ML Vial IV (01:23)
[2018-11-14] MEDS: 0.9% NaCl Peripheral Flush Adult/Peds IV (01:23)
[2018-11-14 03:16] LABS: Bedside Glucose 97 mg/dL (70-110)
[2018-11-14 03:31] VITALS: BP 134/62; PULSE 63; RESP 16; TEMP 36.9; O2SAT 92
[2018-11-14 06:07] LABS: Absolute Lymphocyte Count 0.68 X10^3/ul (0.83-4.51); Absolute Neutrophil Count 6.9 X10^3/uL (2.0-7.7); Basophil# 0.03 X10^3/uL; Basophil% 0.4 % (0-1); Eosinophil# 0.23 X10^3/uL; Eosinophils% 2.7 % (0-5); Hematocrit 25.3 % (37-47); Hemoglobin 7.9 g/dl (12.0-15.0); Lymphocyte # 0.68 X10^3/ul (4.0); Lymphocyte % 8.1 % (19-41); Mean Corp Hgb Conc 31.2 g/gl (32-36); Mean Corpuscular Hgb 29.8 pg (27.0-32.0); Mean Corpuscular Volume 95.5 fL (81-99); Mean Platelet Vol. 9.2 fl (6.2-12.0); Monocyte# 0.53 X10^3/uL; Monocyte% 6.3 % (0-10); Neutrophil # 6.94 X10^3/uL (2.7-7.7); Neutrophil % 82.1 % (47-70); Platelet Count 276 K/mm3 (150-450); RBC Distribution Width CV 15.2 % (11.6-14.6); RBC Distribution Width SD 51.1 fl (35.1-43.9); Red Blood Count 2.65 M/mm3 (4.2-5.4); White Blood Count 8.4 K/mm3 (4.4-11.0)
[2018-11-14 06:08] LABS: International Normalized Ratio 1.4; POSITIVE COUNT NO; POSITIVE DIFFERENTIAL NO; POSITIVE MORPHOLOGY NO; Prothrombin Time (Protime)PT. 16.6 SECONDS (11.7-14.9)
[2018-11-14 06:09] LABS: Partial Thromboplast Time 69.3 Seconds (24.1-36.2)
[2018-11-14 06:18] LABS: Anion Gap 16 (5-15); BUN 87 mg/dL (7-18); BUN/Creat Ratio 15.3 RATIO (10-20); Calcium,Total 7.5 mg/dL (8.5-10.1); Chloride 101 mmol/L (98-107); EST Glomerular Filtration Rate 8 mL/min (>60); Est Glom Filt Rate - Afr Amer 10 mL/min (>60); Estimated Creatinine Clearance 9.21 ml/min; Glucose 88 mg/dL (74-106); Potassium 5.1 mmol/L (3.5-5.1); Sodium Level 131 mmol/L (136-145)
[2018-11-14 06:45] LABS: Bedside Glucose 93 mg/dL (70-110)
[2018-11-14] MEDS: Ferrous Sulfate 325 MG Tablet PO (08:21)
[2018-11-14] MEDS: Calcium Acetate 667 MG Capsule 2001 MG PO (08:21)
--- NOTE | 2018-11-14 08:35 | DCINST_ITS ---
- Discharge Diagnoses Current Active Problems: Current Active and Chronic Problems (Last Updated 11/11/18 @ 16:36 by Anthony Georges DO) Debility (Acute) You will use the following diet at home:: Calorie/Carbohydrate Controlled (specify 1200, 1400, etc) - 1800 Your food should be the consistency of: Regular Discharge Activity: Return to Normal Activity, May not drive while taking narcotic pain medications. Allergies/Adverse Reactions: Allergies sertraline [From Zoloft] Allergy (Verified 11/12/18 19:13) MAKES ME CLIMB THE PEACOCK bacitracin [From Neosporin ([id number])] Adverse Reaction (Verified 11/12/18 19:13) dry skin PT STATES, SHE GETS DRY SKIN. neomycin [From Neosporin ([id number])] Adverse Reaction (Verified 11/12/18 19:13) dry skin PT STATES, SHE GETS DRY SKIN. polymyxin B [From Neosporin ([id number])] Adverse Reaction (Verified 11/12/18 19:13) dry skin PT STATES, SHE GETS DRY SKIN. Medications to take at Discharge Hydroxychloroquine Sulfate [Plaquenil] 200 mg PO QHS 11/11/18 Insulin Lispro [Humalog] 0 unit SQ DAILY 11/11/18 Albuterol Sulfate [Albuterol Sulfate Hfa] 2 puff INHALATION Q4H PRN 11/12/18 Amlodipine Besylate 5 mg PO DAILY 11/12/18 Cholecalciferol (Vitamin D3) [Vitamin D3] 2,000 unit PO DAILY 11/12/18 Epoetin Rj [Procrit] 11/12/18 Escitalopram Oxalate [Lexapro] 20 mg PO DAILY 11/12/18 Ferrous Sulfate [Slow Release Iron] 140 mg PO DAILY 11/12/18 Furosemide 40 mg PO DAILY PRN 11/12/18 Gabapentin 300 mg PO QHS 11/12/18 Hydrocodone/Acetaminophen [Hydrocodone-Acetamin 5-325 mg] 1 tab PO Q4H PRN 11/12/18 Hydroxyzine HCl 25 mg PO Q8H PRN 11/12/18 Lamotrigine 200 mg PO QHS 11/12/18 Loperamide [Imodium] 2 mg PO Q4H PRN PRN 11/12/18 Ondansetron [Ondansetron Odt] 4 mg PO Q6H PRN 11/12/18 Pramipexole Di-HCl [Mirapex] 0.5 mg PO QHS 11/12/18 Insulin Glargine,Hum.rec.anlog [Basaglneris Tyson[place]ose U-100] 20 unit SUBCUT QHS #0 11/14/18 Warfarin [Coumadin] 3 mg PO UD tab 11/14/18 Primary Care Physician: Tato Doctor,Out of [Primary Care Provider] - Please follow up with your Primary Care Physician in: IN 1-2 WEEKS Test Results: Test results from this visit will be discussed in further detail at your follow- up appointment, if applicable. Proposed Discharge Date: 11/14/18
--- NOTE | 2018-11-14 08:39 | PCM.DC.SUM ---
Discharge Date and Diagnosis - Problem List Patient Problems: Active and Suspected Problems (Last Updated 11/11/18 @ 16:36 by Anthony Georges DO) Debility (Acute) Date of Admission: 11/11/18 Date of Discharge: 11/14/18 - Primary Discharge Diagnosis Active and Suspected Problems (Last Updated 11/11/18 @ 16:36 by Anthony Georges DO) Debility (Acute) Hospital Course and Treatment Summary of Care Provided: Patient is a 63-year-old lady admitted with progressive generalized weakness 1. Severe anemia. (Secondary to anemia of chronic disorder as well as chronic kidney disease) patient hemoglobin did drop from 7.7 on admission to 6.4. With patient being symptomatic and order was given for patient to be transferred with [facility] patient did receive 2 units. Also did receive iron transfusion.. 2. Physical debility secondary to patient comorbidities including chronic kidney disease stage V, diabetes with hypoglycemia as well as anemia admitted to regular nursing floor where patient was managed 3. Chronic kidney disease stage V Baseline creatinine unknown old records requested from patient's hospital includes. She however had significant azotemia. Consultation was placed to nephrology on admission patient was seen by Dr. Kyra Espinoza with nephrology her notes and recommendations reviewed 4. Diabetes mellitus type 2 patient is on insulin which was held in view of patient's significant hypoglycemia 5. History of cardiac thrombus exact location unknown patient was apparently on systemic anticoagulation with Coumadin which she forgot was traveling from [place] to [place] patient was started on heparin and Coumadin with daily monitoring of INR. Prior to discharge patient stated she had all her medications at home advised to resume her previous Coumadin dose 6. History of lupus alone patient is on Plaquenil 7. Tobacco dependence counseled on cessation, offered nicotine patch for tobacco cravings 8. DVT prophylaxis patient is on systemic anticoagulation Patient Problems: Active and Suspected Problems (Last Updated 11/11/18 @ 16:36 by Anthony Georges DO) Debility (Acute) Objective: GENERAL: cooperative HEENT: Atraumatic; moist oral mucosa EYES; Anicteric, Normal Conjunctiva NECK; supple, normal thyroid, RESPIRATORY: Diminished to auscultation bilaterally, CARDIOVASCULAR: Regular S1 S2, GI: soft, non-tender, normoactive bowel sounds, : No Renal angle tenderness; NEURO: Awake; no lateralizing signs. SKIN: Ecchymosis on upper extremities PSYCH; Normal affect - Physical Exam Vital Signs Temp Pulse Resp BP Pulse Ox 98.4 F 63 16 134/62 H 92 11/14/18 03:31 11/14/18 03:31 11/14/18 03:31 11/14/18 03:31 11/14/18 03:31 Oxygen Flow Rate (L/min) 2 Oxygen Delivery Method Nasal Cannula Weight: 94.4 kg Body Mass Index (BMI) 33.6 Intake and Output for Last 24 Hours 11/12/18 11/13/18 11/14/18 23:59 23:59 23:59 Intake Total 1315 / 1315 4061 / 4061 233 / 233 Output Total 650 / 650 300 / 300 100 / 100 Balance 665 / 665 3761 / 3761 133 / 133 Microbiology Past 72 Hours 11/11/18 23:55 Urine Culture - Final Urine, Clean Catch Mixed Gram Positive Organisms Laboratory Tests Past 24 Hrs 11/13/18 11/13/18 11/13/18 09:40 09:40 17:14 WBC RBC Hgb 7.1 L Hct 22.2 L MCV MCH MCHC RDW RDW Differential Plt Count MPV Immature Gran % (Auto) Neut % (Auto) Lymph % (Auto) [place] % (Auto) Eos % (Auto) Baso % (Auto) Absolute Neuts (auto) Absolute Lymphs (auto) Total Counted PT INR APTT Sodium Potassium Chloride Carbon Dioxide Anion Gap BUN Creatinine Estim Creat Clear Calc Est GFR (MDRD) Af Amer Est GFR (MDRD) Non-Af BUN/Creatinine Ratio Glucose Calcium Blood Type O POSITIVE Antibody Screen NEGATIVE Crossmatch See Detail See Detail 11/14/18 11/14/18 11/14/18 05:02 05:02 05:02 WBC 8.4 RBC 2.65 L Hgb 7.9 L Hct 25.3 L MCV 95.5 MCH 29.8 MCHC 31.2 L RDW 15.2 H RDW Differential 51.1 H Plt Count 276 MPV 9.2 Immature Gran % (Auto) 0.400 Neut % (Auto) 82.1 H Lymph % (Auto) 8.1 L [place] % (Auto) 6.3 Eos % (Auto) 2.7 Baso % (Auto) 0.4 Absolute Neuts (auto) 6.9 Absolute Lymphs (auto) 0.68 L Total Counted Not Reportable PT 16.6 H INR 1.4 APTT 69.3 H Sodium 131 L Potassium 5.1 Chloride 101 Carbon Dioxide 14.0 L Anion Gap 16 H BUN 87 H Creatinine 5.70 H Estim Creat Clear Calc 9.21 Est GFR (MDRD) Af Amer 10 L Est GFR (MDRD) Non-Af 8 L BUN/Creatinine Ratio 15.3 Glucose 88 Calcium 7.5 L Blood Type Antibody Screen Crossmatch POC Glucose 11/14/18 11/14/18 11/13/18 06:35 03:05 21:29 POC Glucose 93 97 128 H 11/13/18 11/13/18 16:11 11:17 POC Glucose 117 H 91 Discharge Diet: 1800 Calorie Control Diet Discharge Activity: Return to Normal Activity, May not drive while taking narcotic pain medications. Home Medications: Medications to take at Discharge Hydroxychloroquine Sulfate [Plaquenil] 200 mg PO QHS 11/11/18 Insulin Lispro [Humalog] 0 unit SQ DAILY 11/11/18 Albuterol Sulfate [Albuterol Sulfate Hfa] 2 puff INHALATION Q4H PRN 11/12/18 Amlodipine Besylate 5 mg PO DAILY 11/12/18 Cholecalciferol (Vitamin D3) [Vitamin D3] 2,000 unit PO DAILY 11/12/18 Epoetin Rj [Procrit] 11/12/18 Escitalopram Oxalate [Lexapro] 20 mg PO DAILY 11/12/18 Ferrous Sulfate [Slow Release Iron] 140 mg PO DAILY 11/12/18 Furosemide 40 mg PO DAILY PRN 11/12/18 Gabapentin 300 mg PO QHS 11/12/18 Hydrocodone/Acetaminophen [Hydrocodone-Acetamin 5-325 mg] 1 tab PO Q4H PRN 11/12/18 Hydroxyzine HCl 25 mg PO Q8H PRN 11/12/18 Lamotrigine 200 mg PO QHS 11/12/18 Loperamide [Imodium] 2 mg PO Q4H PRN PRN 11/12/18 Ondansetron [Ondansetron Odt] 4 mg PO Q6H PRN 11/12/18 Pramipexole Di-HCl [Mirapex] 0.5 mg PO QHS 11/12/18 Insulin Glargine,Hum.rec.anlog [Basaglar Kwikpen U-100] 20 unit SUBCUT QHS #0 11/14/18 Warfarin [Coumadin] 3 mg PO UD tab 11/14/18 Primary Care Physician: Tato Doctor,Out of [Primary Care Provider] - Please follow up with your Primary Care Physician in: IN 1-2 WEEKS Disposition: Home Minutes spent on discharge:: 35 Patient Condition:: Stable Medical Necessity - Tobacco Use Smoking Status: Heavy Smoker (>10/day) Tobacco Use: Cigarettes Meaningful Use Info Meaningful Use Diagnoses (Choose all that apply): None applicable Code Visit Inpatient E&M: 07562 Disch Hosp
--- NOTE | 2018-11-14 10:35 | CASEMGMT ---
EMMY CM in to discuss discharge needs with patient. Patient denies needs at this time. Patient follows with PCP in [place] where she lives. Patient is staying with step mother while visiting.
--- NOTE | 2018-11-14 11:01 | PN.RENAL_ITS ---
Patient Problems: Active and Suspected Problems (Last Updated 11/14/18 @ 10:05 by Key Espinoza DO) Metabolic acidosis (Acute) Vitamin D deficiency (Acute) DM2 (diabetes mellitus, type 2) (Acute) Iron deficiency anemia (Acute) Hyperparathyroidism due to renal insufficiency (Acute) Hyperphosphatemia (Acute) CKD stage 5 due to type 2 diabetes mellitus (Acute) Debility (Acute) Subjective: pt wants to be discharged. STates does not need any of the meds started in the hospital eg binders, VDRA, bicarb. States have them all at home but denied being on any of them back home on day of admission. Advised to f/u with primary lip of [facility] back in [place]. Vitals stable labs reviewed - Physical Exam Vital Signs Temp Pulse Resp BP Pulse Ox 98.4 F 63 16 134/62 H 92 11/14/18 03:31 11/14/18 03:31 11/14/18 03:31 11/14/18 03:31 11/14/18 03:31 Oxygen Flow Rate (L/min) 2 Oxygen Delivery Method Nasal Cannula Weight: 94.4 kg Body Mass Index (BMI) 33.6 Intake and Output for Last 24 Hours 11/12/18 11/13/18 11/14/18 23:59 23:59 23:59 Intake Total 1315 / 1315 4061 / 4061 233 / 233 Output Total 650 / 650 300 / 300 100 / 100 Balance 665 / 665 3761 / 3761 133 / 133 Microbiology Past 72 Hours 11/11/18 23:55 Urine Culture - Final Urine, Clean Catch Mixed Gram Positive Organisms Laboratory Tests Past 24 Hrs 11/13/18 11/13/18 11/13/18 09:40 09:40 17:14 WBC RBC Hgb 7.1 L Hct 22.2 L MCV MCH MCHC RDW RDW Differential Plt Count MPV Immature Gran % (Auto) Neut % (Auto) Lymph % (Auto) [place] % (Auto) Eos % (Auto) Baso % (Auto) Absolute Neuts (auto) Absolute Lymphs (auto) Total Counted PT INR APTT Sodium Potassium Chloride Carbon Dioxide Anion Gap BUN Creatinine Estim Creat Clear Calc Est GFR (MDRD) Af Amer Est GFR (MDRD) Non-Af BUN/Creatinine Ratio Glucose Calcium Blood Type O POSITIVE Antibody Screen NEGATIVE Crossmatch See Detail See Detail 11/14/18 11/14/18 11/14/18 05:02 05:02 05:02 WBC 8.4 RBC 2.65 L Hgb 7.9 L Hct 25.3 L MCV 95.5 MCH 29.8 MCHC 31.2 L RDW 15.2 H RDW Differential 51.1 H Plt Count 276 MPV 9.2 Immature Gran % (Auto) 0.400 Neut % (Auto) 82.1 H Lymph % (Auto) 8.1 L [place] % (Auto) 6.3 Eos % (Auto) 2.7 Baso % (Auto) 0.4 Absolute Neuts (auto) 6.9 Absolute Lymphs (auto) 0.68 L Total Counted Not Reportable PT 16.6 H INR 1.4 APTT 69.3 H Sodium 131 L Potassium 5.1 Chloride 101 Carbon Dioxide 14.0 L Anion Gap 16 H BUN 87 H Creatinine 5.70 H Estim Creat Clear Calc 9.21 Est GFR (MDRD) Af Amer 10 L Est GFR (MDRD) Non-Af 8 L BUN/Creatinine Ratio 15.3 Glucose 88 Calcium 7.5 L Blood Type Antibody Screen Crossmatch POC Glucose 11/14/18 11/14/18 11/13/18 06:35 03:05 21:29 POC Glucose 93 97 128 H 11/13/18 11/13/18 16:11 11:17 POC Glucose 117 H 91 Medical Necessity - Tobacco Use Smoking Status: Heavy Smoker (>10/day) Tobacco Use: Cigarettes Assessment/Plan All Active Problems (Last Updated 11/14/18 @ 10:05 by Key Espinoza DO) Metabolic acidosis (Acute) Vitamin D deficiency (Acute) DM2 (diabetes mellitus, type 2) (Acute) Iron deficiency anemia (Acute) Hyperparathyroidism due to renal insufficiency (Acute) Hyperphosphatemia (Acute) CKD stage 5 due to type 2 diabetes mellitus (Acute) Debility (Acute)
== END 2018-11-14 11:00 | disposition home or self-care (01) | DRG 699 ==
LOC: ED 15:00 → MS3 16:26
PROVIDERS: Internal Medicine Nephrology; Emergency Provider Emergency Medicine; Visit Provider Internal Medicine
DX: E11.22 Type 2 diabetes mellitus with diabetic chronic kidney disease (principal); I12.0 Hypertensive chronic kidney disease with stage 5 chronic kidney disease or end stage renal disease; E87.2 Acidosis; E87.1 Hypo-osmolality and hyponatremia; N18.5 Chronic kidney disease, stage 5; R53.81 Other malaise; D63.1 Anemia in chronic kidney disease; E55.9 Vitamin D deficiency, unspecified; E83.51 Hypocalcemia; E83.39 Other disorders of phosphorus metabolism; N25.81 Secondary hyperparathyroidism of renal origin; E11.649 Type 2 diabetes mellitus with hypoglycemia without coma; D50.9 Iron deficiency anemia, unspecified; F17.210 Nicotine dependence, cigarettes, uncomplicated; Z79.01 Long term (current) use of anticoagulants; Z79.4 Long term (current) use of insulin; Z86.79 Personal history of other diseases of the circulatory system
CPT/HCPCS: 36415; 80048; 80076; 81001; 82306; 82728; 82947; 82962; 83036; 83540; 83735; 83970; 84100; 84443; 85014; 85018; 85025; 85610; 85730; 86850; 86900; 86920; 86922; 87086; 87088; 93005; 97162; 97166; 97802; 99285; J1756; J7030; J7040; P9016; A4216; J2405; Q5106